=== PATIENT | male | born 1945 | race Caucasian/White ===

== ENCOUNTER 2020-05-15 12:19 | Emergency (ER) | payer MEDICAID ==
[~2020-05-15] VITALS: Ht 167.6 cm; Wt 86.0 kg
[~2020-05-15 12:19] MED LIST: ALBU18HF2 IH; AZIT250T12 MT; DEXA6TAB MT
[2020-05-15 13:16] VITALS: BP 135/89
[2020-05-17] MEDS ORDERED: LOSA50TA41 PO (08:16)
[2020-05-17] MEDS ORDERED: IPRA4AER INH (08:16)
[2020-05-17] MEDS ORDERED: LIP40 PO (08:16)
[2020-05-17] MEDS ORDERED: ISOS5TAB4 PO (08:20)
[2020-05-17] MEDS ORDERED: AMLO5TAB88 PO (08:20)
[2020-05-17] MEDS ORDERED: GLIP5TAB12 PO (08:20)
== END 2020-05-15 15:20 | disposition left against medical advice (07) ==
LOC: ER 12:19
DX: U07.1 COVID-19 (principal); R09.02 Hypoxemia; I10 Essential (primary) hypertension; E87.1 Hypo-osmolality and hyponatremia; E11.9 Type 2 diabetes mellitus without complications; Z87.09 Personal history of other diseases of the respiratory system
CPT/HCPCS: 99281